=== PATIENT | female | born 1990 | race American Indian/Alaskan Native ===

== ENCOUNTER 2019-01-13 08:18 | Emergency (ER) | payer SELFPAY ==
[2019-01-13 08:33] VITALS: BP 129/86
--- NOTE | 2019-01-13 10:42 | Emergency Department Report ---
ED Female HPI - General Chief complaint: Sore Throat Stated complaint: VAGINAL DISCOMFORT Time Seen by Provider: 01/13/19 09:39 Source: patient Mode of arrival: Ambulatory Limitations: No Limitations - History of Present Illness Initial comments: This is a 28-year-old female who presents to ED complaining of some vaginal irritation since change in her soap from dull to another soap above 3 days ago. Patient states she has had some irritation on the area and is oriented. Patient denies any vaginal discharge, vaginal odor, vaginal itching, vaginal bleed or pelvic pain. Patient states that her main complaint is of vaginal irritation but Patient did mention she had been having some muscle pain from neck and shoulder region. She denies any throat pain, fever, chills, nausea vomiting. - Related Data Previous Rx's Medication Instructions Recorded Last Taken Type metroNIDAZOLE [Metronidazole] 500 mg PO DAILY #8 tablet 01/13/19 Unknown Rx Allergies Allergy/AdvReac Type Severity Reaction Status Date / Time amoxicillin Allergy Unknown Verified 01/12/19 12:26 shellfish derived Allergy Hives Verified 01/13/19 08:34 ED Review of Systems ROS: Stated complaint: VAGINAL DISCOMFORT Other details as noted in HPI Comment: All other systems reviewed and negative ED Past Medical Hx - Past Medical History Previous Medical History?: No - Surgical History Past Surgical History?: No - Social History Smoking Status: Never Smoker Substance Use Type: None - Medications Home Medications: Home Medications Medication Instructions Recorded Confirmed Last Taken Type metroNIDAZOLE [Metronidazole] 500 mg PO DAILY #8 tablet 01/13/19 Unknown Rx ED Physical Exam - General Limitations: No Limitations General appearance: alert, in no apparent distress - Head Head exam: Present: atraumatic, normocephalic - Eye Eye exam: Present: normal appearance - ENT ENT exam: Present: mucous membranes moist - Neck Neck exam: Present: normal inspection, full ROM. Absent: tenderness, lymphadenopathy - Respiratory Respiratory exam: Present: normal lung sounds bilaterally. Absent: respiratory distress - Cardiovascular Cardiovascular Exam: Present: regular rate, normal rhythm. Absent: systolic murmur, diastolic murmur, rubs, gallop - GI/Abdominal GI/Abdominal exam: Present: soft, normal bowel sounds - External exam: Present: normal external exam. Absent: erythema, swelling, l esions, lacerations Speculum exam: Present: normal speculum exam. Absent: erythema Bi-manual exam: Present: normal bi-manual exam. Absent: cervical motion tendernes - Extremities Exam Extremities exam: Present: normal inspection - Back Exam Back exam: Present: normal inspection, full ROM. Absent: tenderness, CVA tenderness (R), CVA tenderness (L) - Neurological Exam Neurological exam: Present: alert, oriented X3, normal gait - Psychiatric Psychiatric exam: Present: normal affect, normal mood - Skin Skin exam: Present: warm, dry, intact, normal color. Absent: rash ED Course Vital Signs 01/13/19 08:30 Temperature 98.5 F Pulse Rate 82 Respiratory 18 Rate Blood Pressure 129/86 O2 Sat by Pulse 99 Oximetry ED Medical Decision Making - Medical Decision Making 28-year-old female presents with vaginitis. Discussed with patient to follow-up weights also medical clinic if she is worried about STDs. Discussed the patient others [facility] Will take care of her STD screening. Urinalysis clean no signs of STD or UTI. Discussed this findings with the patient. Patient short course of Flagyl Vital signs are normal she is in no acute distress. Critical care attestation.: If time is entered above; I have spent that time in minutes in the direct care of this critically ill patient, excluding procedure time. ED Disposition Clinical Impression: Vaginitis Disposition: [id number] TO HOME OR SELFCARE Is pt being admited?: No Does the pt Need Aspirin: No Condition: Stable Instructions: Bacterial Vaginosis (ED), Vaginitis (ED) Additional Instructions: Make sure to follow up with the primary care physician as discussed. Take all your medications as you've been prescribed. Follow[facility]up with [facility] for STD screening. If you have any worsening symptoms or develop new symptoms please return to ED immediately. Prescriptions: metroNIDAZOLE [Metronidazole] 500 mg PO DAILY #8 tablet Ref[facility] [Primary Care Provider] - 3-5 Days Forms: Work/School Release Form(ED) Time of Disposition: 10:49
== END 2019-01-13 11:02 | disposition home or self-care (01) ==
LOC: ED 08:18
DX: N76.0 Acute vaginitis (principal); Z91.013 Allergy to seafood; Z88.1 Allergy status to other antibiotic agents
CPT/HCPCS: 99283